=== PATIENT | male | born 1945 | race Caucasian/White ===

== ENCOUNTER 2024-08-28 07:45 | Outpatient (OUT) | payer MEDICARE, SELFPAY ==
--- NOTE | 2024-08-28 07:57 | ECG_ITS ---
[facility] Test Date: 2024-08-28 Pat Name: SORIN RICH Department: Room: - Gender: Male [employer]: : 1945 Requested By: SHANNA BEASLEY Order Number: [id number] Reading MD: LIVAN MORAN Measurements Intervals [place] Rate: 64 P: 70 ID: [id number] QRS: 38 QRSD: 84 T: 35 QT: 388 QTc: 402 Interpretive Statements SINUS RHYTHM No previous ECG available for comparison Electronically Signed On 08-28-2024 22:43:54 EDT by LIVAN MORAN
--- NOTE | 2024-08-28 08:39 | P.GSHP_ITS ---
History of Present Illness History of Present Illness Chief complaint: bladder tumors and lesions Narrative: Patient presents for preadmission testing. Please see HPI from Dr. Herzog dated August 21, 2024. Review of Systems ROS Narrative Please see ROS from Dr. Herzog dated August 21, 2024. PFSH PFS Medical History (Updated 08/28/24 @ 08:26 by Abigail Moss NP) Back pain ?M54.9 - Dorsalgia, unspecified (ICD-10) Microscopic hematuria ?R31.29 - Other microscopic hematuria (ICD-10) Bladder cancer ?C67.9 - Malignant neoplasm of bladder, unspecified (ICD-10) Benign prostatic hyperplasia with urinary obstruction and other lower urinary tract symptoms ?N40.1 - Benign prostatic hyperplasia with lower urinary tract symptoms (ICD- 10) ?N13.8 - Other obstructive and reflux uropathy (ICD-10) Bladder tumor ?D49.4 - Neoplasm of unspecified behavior of bladder (ICD-10) Anemia ?D64.9 - Anemia, unspecified (ICD-10) Surgical History (Updated 08/28/24 @ 08:22 by Abigail Moss NP) History of open reduction and internal fixation (ORIF) procedure ?Z98.890 - Other specified postprocedural states (ICD-10) H/O colonoscopy ?Z98.890 - Other specified postprocedural states (ICD-10) S/P rotator cuff repair ?Z98.890 - Other specified postprocedural states (ICD-10) H/O transurethral resection of bladder tumor (TURBT) ?Z98.890 - Other specified postprocedural states (ICD-10) ?Z86.03 - Personal history of neoplasm of uncertain behavior (ICD-10) H/O cystoscopy ?Z98.890 - Other specified postprocedural states (ICD-10) Family History (Updated 08/28/24 @ 08:26 by Abigail Moss NP) Other Family history of coronary artery disease Family history of heart disease Social History (Updated 08/28/24 @ 08:19 by Abigail Moss NP) Within the past year, how often did you have a drink containing alcohol: monthly or less Smoking status: Current every day smoker What tobacco products do you use: cigarettes Cigarettes per day: 10 Years smoked: 55 Smoking pack-years: 27.50 Non-prescribed substance use: denies use Highest level of school completed/degree received: high school graduate Meds Home Medications and Allergies Home Medications ?Medication ?Instructions ?Recorded ?Confirmed ?Type alfuzosin 10 mg tablet,extended 10 mg PO DAILY 08/28/24 08/28/24 History release 24 hr finasteride 5 mg tablet 5 mg PO DAILY 08/28/24 08/28/24 History glucosamine-chondroitin 250 mg-200 2 tab PO DAILY 08/28/24 08/28/24 History mg tablet (Osteo Bi-Flex) vitamins A,C,Q-qxkh-ldgukw 4,296 1 cap PO DAILY 08/28/24 08/28/24 History mcg-226 mg-90 mg capsule Allergies Allergy/AdvReac Type Severity Reaction Status Date / Time No Known Drug Allergies Allergy Verified 08/28/24 08:16 Exam Narrative Exam Narrative: Constitutional: Awake, alert, comfortable, well-appearing, nontoxic, interactive, vital signs as charted Head: Normocephalic, atraumatic Neck: Supple, normal appearance, normal range of motion, no meningeal signs, no lymphadenopathy Respiratory: No respiratory distress, breath sounds clear Cardiovascular: Regular rate and rhythm, strong and regular heart tones Abdomen: Nontender, normal bowel sounds, soft, no CVA tenderness Musculoskeletal: Normal gait, no swelling or edema Skin: No rashes or induration, no lesions, only visible skin inspected Neuro: No neurological deficits, normal sensation Psychiatric: Oriented ?3, normal affect Assessment and Plan Assessment and Plan (1) Bladder cancer: (2) Benign prostatic hyperplasia with urinary obstruction and other lower urinary tract symptoms: (3) Bladder tumor: Plan Cystoscopy, TURBT scheduled with Dr. Herzog September 05, 2024.
[2024-08-28 08:48] LABS: Basophils Percent Auto 0.4 % (0.2-2.0); Eosinophils Absolute Auto 0.1 10^3/uL (0.0-0.7); Eosinophils Percent Auto 0.9 % (0.9-7.0); Hematocrit 40.2 % (42.0-54.0); Hemoglobin 13.2 g/dL (14.0-18.0); Immature Granulocytes Abs Auto 0.02 10^3/uL (0.00-0.03); Immature Granulocytes Pct Auto 0.3 % (0.0-0.5); Lymphocytes Absolute Auto 1.6 10^3/uL (1.2-3.8); Lymphocytes Percent Auto 20.8 % (20.5-60.0); Mean Corpuscular HGB Conc 32.8 g/dL (29.9-35.2); Mean Corpuscular Hemoglobin 31.7 pg (25.9-34.0); Mean Corpuscular Volume 96.6 fL (80.0-94.0); Mean Platelet Volume 10.5 fL (9.5-13.5); Monocytes Absolute Auto 0.5 10^3/uL (0.3-0.8); Neutrophils Absolute Auto 5.5 10^3/uL (1.4-6.5); Neutrophils Percent Auto 71.6 % (43.0-75.0); Platelet Count 204 10^3/uL (150-450); Red Blood Count 4.16 10^6/uL (4.70-6.10); Red Cell Distribution Width 14.2 % (11.0-15.0); White Blood Count 7.6 10^3/uL (4.0-11.0)
[2024-08-28 09:05] LABS: INR 1.01; Partial Thromboplastin Time 29.2 sec (22.3-36.2); Prothrombin Time 10.7 sec (9.0-11.6)
[2024-08-28 09:06] LABS: Anion Gap 14.8; BUN Creatinine Ratio 13.5; Calcium 8.4 mg/dL (8.5-10.1); Chloride 103 mmol/L (98-107); Estimated GFR (African America >60 (>=60 mL/min/1.73m^2); Estimated GFR (Non-African Ame >60 (>=60 mL/min/1.73m^2); Glucose 121 mg/dL (74-106); Potassium 3.8 mmol/L (3.5-5.1); Sodium 138 mmol/L (136-145)
== END 2024-08-28 07:46 | disposition home or self-care (01) ==
LOC: PST 07:50
PROVIDERS: Family Provider Family Medicine; PCP Family Medicine; Visit Provider Urology
DX: Z01.810 Encounter for preprocedural cardiovascular examination (principal); Z01.812 Encounter for preprocedural laboratory examination; Z01.818 Encounter for other preprocedural examination; D49.4 Neoplasm of unspecified behavior of bladder; N40.1 Benign prostatic hyperplasia with lower urinary tract symptoms
CPT/HCPCS: 36415; 80048; 85025; 85610; 85730; 93005; G0463

== ENCOUNTER 2024-08-29 10:31 | Day surgery (SDC) | payer MEDICARE, SELFPAY ==
[2024-08-28 08:34] VITALS: BP 138/80; PULSE 75; TEMP 36.4; O2SAT 98; BMI 26.8
[2024-08-29] VITALS (10 sets, daily range): BP systolic 105–137; BP diastolic 63–81; PULSE 59–69; TEMP 36.5–36.8; O2SAT 92–97; BMI 28.2
[2024-08-29] MEDS: 0.9 % SODIUM CHLORIDE 500 ML 50 ML IV ×2 (10:57→13:08)
[2024-08-29] MEDS: CEFAZOLIN SODIUM 2 GM/50 ML D5W PREMIX IV (13:07)
--- NOTE | 2024-08-29 14:01 | PM.URSON ---
Urology Surgery Operative Note Operative Note Procedure Date: 08/29/24 Time Out Performed: yes Pre-op Diagnosis: Recurrent bladder tumor Post-op Diagnosis: same as pre-op Procedures performed: 1. Cystoscopy. 2. 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 On annual surveillance cystoscopy he was found to have a recurrence lateral to his right UO. He now presents for TURBT. He has signed an informed consent after risks were explained. Detailed description of Procedure: The patient was brought to the operating room and placed on the operating room table in the supine position. SCDs were placed on the lower extremities and turned on and functioning during the entire case. Timeout was done by all parties in the room. We all agreed upon the patient's identification and the planned procedures for this patient. Genn. anesthesia was then administered. The patient was then repositioned into the modified dorsal lithotomy position. All pressure points were satisfactorily padded. Genitalia were sterilely prepped and draped in usual fashion. I started by passing a 26 [place] Olympus resectoscope with a standard loop electrode per urethra and into the bladder. Careful panendoscopy revealed the previously noted tumor and no other tumors. He had very high-grade trabeculation with some diverticuli formation. I was able to uniformly and deeply resected this tumor. The tumor was removed and sent for permanent sections. The resection bed was coagulated. The ureteral orifice was untouched. Upon completion, there was no evidence of any bleeding. The ureteral orifice on the right E flux clear urine freely. I elected not to place a catheter. The bladder was drained of its contents. The scope was then removed. The anesthetic was then reversed. He was then transferred to a [facility] bed and wheeled to PACU in stable condition.
== END 2024-08-29 15:13 | disposition home or self-care (01) ==
PROVIDERS: Family Provider Family Medicine; PCP Family Medicine; Visit Provider Urology
PROC: (CPT 52234; principal; 2024-08-29 11:40)
DX: C67.9 Malignant neoplasm of bladder, unspecified (principal); Z85.51 Personal history of malignant neoplasm of bladder; R31.9 Hematuria, unspecified; N32.89 Other specified disorders of bladder; N40.1 Benign prostatic hyperplasia with lower urinary tract symptoms; F17.210 Nicotine dependence, cigarettes, uncomplicated
CPT/HCPCS: 52234; 36415; 88305; J0690; J2704; J3010